=== PATIENT | female | born 1965 | race Caucasian/White ===

== ENCOUNTER → 2025-04-03 | Outpatient (CLI) | payer BC, SELFPAY ==
--- NOTE | 2025-04-03 08:00 | XR_ITS ---
Examination: CT chest, without intravenous contrast. Sagittal and coronal 2-D reconstructions. Exam date and time: April 03, 2025, 0757 hours Comparison January 13, 2023 INDICATIONS: Smoking history 13 years, CT chest January 13, 2023 2 mm pulmonary nodule right upper lobe 2 mm pulmonary nodule right lower lobe 3 mm pulmonary nodule lingular segment CTDI:vol (mGy) 9.19 DLP: (mGycm) 331 Technique: Multiple 3.0 mm axial sections of the chest to been obtained. Bone and lung density settings are obtained. Sagittal and coronal 2-D reconstructions have been obtained. Low dose protocols were performed. One or more of the following dose reduction techniques were used; automated exposure control, adjustment of the mA and/or KV according to patient size, use of iterative reconstruction technique. Findings: No thoracic aortic aneurysmal dilatation Pulmonary artery segments are not enlarged 2 mm pulmonary nodule right upper lobe image 39 4 mm soft pulmonary nodule right upper lobe posteriorly image 90 2 mm pulmonary nodule posterior left lung image 108 2 mm pulmonary nodule right lower lobe image 136 No pneumonia or pulmonary edema Breast implants are intact No focal liver or splenic lesion IMPRESSION: Multiple subcentimeter noncalcified pulmonary nodules as above, with this study as baseline suggest continued 6 month follow-up CT chest without contrast
[2025-04-03 09:21] LABS: Basophils # (Auto) 0.1 Thou/mm3 (0.0-0.2); Basophils % (Auto) 1 % (0-2.5); Eosinophils # (Auto) 0.1 Thou/mm3 (0.0-0.5); Eosinophils % (Auto) 1 % (0-10); Hematocrit 38.2 % (36.0-46.0); Hemoglobin 12.8 g/dL (12.0-16.0); Immature Granulocytes Auto 0.03 Thou/mm3 (0.00-0.00); Lymphocytes # (Auto) 1.2 Thou/mm3 (1.0-4.8); Lymphocytes % (Auto) 16 % (10-50); Mean Corpuscular HGB Conc 33.5 g/dl (31.0-37.0); Mean Corpuscular Hemoglobin 28.7 pg (25.0-35.0); Mean Corpuscular Volume 86 fL (80-100); Monocytes # (Auto) 0.7 Thou/mm3 (0.0-0.8); Monocytes % (Auto) 10 % (0-12); Neutrophils # (Auto) 5.1 Thou/mm3 (1.8-7.7); Neutrophils % (Auto) 72 % (37-80); Nucleated Red Blood Cell # 0.00 Thou/mm3 (0.00-0.00); Nucleated Red Blood Cell % 0 /100 WBC (0); Platelet Count 262 Thou/mm3 (140-440); RDW Standard Deviation 46.5 fL (36.4-46.3); Red Blood Count 4.46 Miln/mm3 (4.00-5.20); White Blood Count 7.1 Thou/mm3 (3.6-11.0)
[2025-04-03 09:22] LABS: Alanine Aminotransferase 20 U/L (10-49); Albumin, Serum 4.2 gm/dL (3.4-4.8); Albumin/Globulin Ratio 1.6 (1.2-2.2); Alkaline Phosphatase 80 U/L (46-116); Anion Gap 9 (7-16); Aspartate Amino Transferase 28 U/L (0-34); BUN/Creatinine Ratio 8 Ratio (12-20); Bilirubin,Total 0.2 mg/dL (0.3-1.2); Blood Urea Nitrogen 6 mg/dL (9-23); Calcium 9.2 mg/dL (8.3-10.6); Calcium (Corrected) 9.2 mg/dL (8.5-10.1); Carbon Dioxide 26.7 mMol/L (20.0-31.0); Cardiac Risk Estimate 2.5 RATIO (3.7-5.6); Chloride 104 mMol/L (98-107); Cholesterol 276 mg/dL (132-200); Creatinine (Component) 0.8 mg/dL (0.6-1.3); Globulin 2.6 gm/dL (2.3-3.5); Glucose 94 mg/dL (74-106); HDL Cholesterol 111 mg/dL (40-60); LDL Cholesterol,Calculated 149 mg/dL (0-130); Osmolality,Calculated 277 (275-295); Potassium 4.2 mMol/L (3.4-5.1); Sodium 140 mMol/L (136-145); Thyroid Stimulating Hormone 2.34 uIU/mL (0.55-4.78); Total Protein 6.8 gm/dL (5.7-8.2); Triglycerides 82 mg/dL (30-150); eGFR > 60 See Note
[2025-04-03 09:25] LABS: Vitamin D 25 Hydroxy Total 40.1 ng/mL (7.3-40.2)
[2025-04-03 09:26] LABS: Collection Type, Urine Clean Catch; RBC,Urine 0 /hpf (0-3)
[2025-04-03 11:46] LABS: Bilirubin,Urine Negative (Negative); Blood,Urine Negative (Negative); Clarity,Urine Clear (Clear/Hazy); Color,Urine Colorless (Lt Yel-Yel); Culture Indicated,Urine Not Indicated; Glucose, Urine Negative (Negative); Ketones,Urine Negative (Negative); Leukocyte Esterase,Urine Negative (Negative); Nitrite,Urine Negative (Negative); PH,Urine 6.5 (5.0-7.0); Protein,Urine Negative (Neg - Trace); Specific Gravity,Urine 1.005 (1.001-1.035); Squamous Epithelial Cell,Urine < 1 /hpf (0-5); Urobilinogen,Urine Negative mg/dL (0.0-1.0); WBC,Urine < 1 /hpf (0-5)
== END | disposition home or self-care (01) ==
LOC: CCTX 07:37 → COPL 08:05
PROVIDERS: PCP Family Medicine; Referring Provider Nurse Practitioner Family; Visit Provider Radiology Diagnostic Radiology
DX: R91.1 Solitary pulmonary nodule (principal); F41.9 Anxiety disorder, unspecified; E78.2 Mixed hyperlipidemia
CPT/HCPCS: 36415; 71250; 80053; 80061; 81001; 82306; 84443; 85025